=== PATIENT | female | born 1945 | race Caucasian/White ===

== ENCOUNTER 2019-03-20 08:21 | Outpatient (CLI) | payer MEDICARE | END 2019-03-20 23:59 | disposition home or self-care (01) | LOC: STAR 08:21 | PROVIDERS: ATTEND Surgery | DX: Z01.812 Encounter for preprocedural laboratory examination (principal); C50.812 Malignant neoplasm of overlapping sites of left female breast; D48.61 Neoplasm of uncertain behavior of right breast | CPT/HCPCS: 93005 ==

== ENCOUNTER → 2019-06-25 | Outpatient (CLI) | payer MEDICARE ==
[~2019-06-25] MED LIST: ALBU18HF INH; ATOR10TA9 PO; CETI10CA PO; FLUT12AE INH; LETR2.5T PO; LEVO100T PO; [UNRECOGNIZED DRUG - OTHER] INH
== END | disposition home or self-care (01) ==
LOC: STAR 07:39
PROVIDERS: ATTEND Plastic Surgery
DX: Z01.818 Encounter for other preprocedural examination (principal); C50.512 Malignant neoplasm of lower-outer quadrant of left female breast; Z85.828 Personal history of other malignant neoplasm of skin; Z85.3 Personal history of malignant neoplasm of breast; Z88.6 Allergy status to analgesic agent
CPT/HCPCS: 93005

== ENCOUNTER 2019-07-01 19:27 | Day surgery (SDC) | payer MEDICARE ==
[~2019-07-01] VITALS: Ht 172.7 cm; Wt 66.4 kg
[2019-07-01 14:56] VITALS: BP 146/74
[2019-07-01 15:29] LABS: BASOPHILS # (AUTO) 0.02 x10^3/uL (0-0.1); BASOPHILS % (AUTO) 1 % (0-1); EOSINOPHILS # (AUTO) 0.19 x10^3/uL (0-0.4); EOSINOPHILS % (AUTO) 4 % (1-7); LYMPHOCYTES # (AUTO) 1.63 x10^3/uL (1-3.4); LYMPHOCYTES % (AUTO) 35 % (22-44); MD NO; MEAN CORPUSCULAR HEMOGLOBIN 31.2 pg (27.0-34.8); MEAN CORPUSCULAR HGB CONC 33.2 g/dL (32.4-35.8); MEAN CORPUSCULAR VOLUME 93.7 fL (80-100); MEAN PLATELET VOLUME 8.2 fL (7.4-10.4); MONOCYTES # (AUTO) 0.45 x10^3/uL (0.2-0.8); MONOCYTES % (AUTO) 10 % (2-9); NEUTROPHILS # (AUTO) 2.43 x10^3/uL (1.8-6.8); NEUTROPHILS % (AUTO) 51 % (42-75); PLATELET COUNT 196 x10^3/uL (130-400); RED BLOOD COUNT 3.79 x10^6/uL (3.82-5.3); RED CELL DISTRIBUTION WIDTH 13.1 % (9.6-15.2)
[~2019-07-01 19:27] MED LIST changes: +ACETAMINOPHEN 325 MG TABLET PO PRN; +ACETAMINOPHEN 500 MG TABLET PO ONE; +ALBUTEROL SULFATE 2.5 MG/3 ML NPPB PRN; +BACITRACIN 50,000 UNIT ONE; +BUPIVACAINE/EPI 0.5% 1:200K ONE; +CEFAZOLIN 1,000 MG ONE; +DEXAMETHASONE 4 MG/ML, 1ML ONE; +DIAZEPAM 5 MG/ML, 2ML IVPush PRN; +EPHEDRINE 50 MG/ML, 1ML IVPush PRN; +FENTANYL PF 100 MCG/2ML IV PRN; +FENTANYL PF 250 MCG/5ML ONE; +GABAPENTIN 300 MG CAPSULE PO ONE; +GENTAMICIN 80 MG/2 ML ONE; +HALOPERIDOL 5 MG/ML IV PRN; +HYDROmorphone 2 MG/ML, 1ML IVPush PRN; +LABETALOL 5MG/ML, 20ML IV PRN; +LACTATED RINGERS 1,000 ML IV SCH; +MEPERIDINE/PF 25MG/ML,1ML IVPush PRN; +MIDAZOLAM 1 MG/ML, 2ML IV PRN; +MIDAZOLAM 1 MG/ML, 2ML ONE; +NALOXONE 0.4 MG/ML, 1ML ONE; +ONDANSETRON 2MG/ML, 2ML IV PRN; +ONDANSETRON 2MG/ML, 2ML ONE; +ONDANSETRON ODT 8 MG PO PRN; +OXYcodone 5 MG/5 ML ORAL.SOL UDC PO PRN; +PROMETHAZINE 12.5 MG SUPP PR PRN; +PROMETHAZINE 25 MG/ML, 1ML IV PRN; +PROPOFOL 10 MG/ML, 20ML ONE; +ROCURONIUM 10MG/ML,5ML ONE; +SUCCINYLCHOLINE 20 MG/ML, 10ML ONE; +hydrALAzine 20 MG/ML, 1ML IV PRN
== END 2019-07-01 20:19 | disposition home or self-care (01) ==
LOC: OUT 19:27 → 4NE 19:38 → OUT 20:19
PROVIDERS: ATTEND Plastic Surgery
DX: Z45.812 Encounter for adjustment or removal of left breast implant (principal); Z45.811 Encounter for adjustment or removal of right breast implant; J45.909 Unspecified asthma, uncomplicated; E78.5 Hyperlipidemia, unspecified; E03.9 Hypothyroidism, unspecified; Z72.89 Other problems related to lifestyle; Z79.890 Hormone replacement therapy; Z79.899 Other long term (current) drug therapy; Z88.5 Allergy status to narcotic agent; Z85.3 Personal history of malignant neoplasm of breast; Z90.13 Acquired absence of bilateral breasts and nipples; Z90.710 Acquired absence of both cervix and uterus; Z90.49 Acquired absence of other specified parts of digestive tract; Z98.890 Other specified postprocedural states; Z82.49 Family history of ischemic heart disease and other diseases of the circulatory system
CPT/HCPCS: 11970; 19380; 36415; 85025; C1729; C1789; J0330; J0690; J1100; J1580; J2250; J2310; J2405; J2704; J3010; G0378